=== PATIENT | female | born 1940 | race Two or more races ===

== ENCOUNTER 2023-04-15 15:19 | Inpatient (IN) | payer MEDICARE, OTHER ==
[2023-04-15 16:02] LABS: #Eosinphils 0.3 thou/uL (0.0-0.7); #Monocytes 0.8 thou/uL (0.11-0.59); #Neutrophils 5.5 thou/uL (1.40-6.50); %Basophils 0.4 % (0.0-1.0); %Eosinophils 3.5 % (0.0-10.0); %Lymphocytes 20.1 % (21.0-51.0); %Monocytes 9.6 % (0.0-10.0); %Neutrophils 66.2 % (42.0-75.0); Hematocrit 34.7 % (36.0-47.0); Mean Corpuscular HGB CONC 31.7 g/dL (32.0-36.0); Mean Corpuscular Hemoglobin 32.4 pg (27.0-31.0); Mean Corpuscular Volume 102.4 fl (78.0-98.0); Mean Platelet Volume 9.6 fL (7.4-10.4); Platelet Count 271 10x3/uL (130-400); RBC Distribution Width 18.2 % (11.5-14.5); Red Blood Cell (RBC) Count 3.39 mill/uL (4.20-5.40); White Blood Cell (WBC) Count 8.4 10x3/uL (4.8-10.8)
[2023-04-15] MEDS ORDERED: methylPREDNISolone Sod Succ/PF 125 MG/2 ML VIAL ONE (16:22)
[2023-04-15 16:25] LABS: ALT (SGPT) 34 U/L (8-55); AST (SGOT) 35 U/L (5-34); Albumin 3.9 g/dL (3.4-4.8); Alkaline Phosphatase 88 U/L (40-110); Anion Gap 15 mmol/L (10-20); BUN (Urea Nitrogen) 46 mg/dL (9.8-20.1); Bilirubin, Total 0.3 mg/dL (0.2-1.2); Calc. Creatinine Clearance 0 mL/min (70-130); Carbon Dioxide 29 mmol/L (23-31); Chloride 101 mmol/L (98-107); Estimated GFR 12; Globulin 1.6 g/dL (2.4-3.5); Glucose 96 mg/dL (83-110); Potassium 4.1 mmol/L (3.5-5.1); Protein, Total 5.5 g/dL (5.8-8.1); Sodium 141 mmol/L (136-145)
[2023-04-15 16:48] LABS: Magnesium 2.5 mg/dL (1.6-2.6)
[2023-04-15] MEDS ORDERED: Furosemide 40 MG/4 ML VIAL ONE (17:00)
[2023-04-15] MEDS ORDERED: Ipratropium/Albuterol 3 ML NEB ONE (17:00)
[2023-04-15] MEDS ORDERED: Nitroglycerin 2% Ointment 1 INCH/1 GM Packet ONE (17:00)
[2023-04-15] MEDS ORDERED: Aspirin Chewable 81 MG TAB ONE (17:02)
[2023-04-15] MEDS ORDERED: dilTIAZem 30 MG TAB PO PRN (18:34)
[2023-04-15] MEDS ORDERED: Senokot S 8.6-50 MG TAB PO PRN (18:45)
[2023-04-15] MEDS ORDERED: Acetaminophen 325 MG TAB PO PRN (18:45)
[2023-04-15] MEDS ORDERED: Ondansetron ODT 4 MG TAB PO PRN (18:45)
[2023-04-15] MEDS ORDERED: Ondansetron PF 4 MG/2 ML Vial IVP PRN (18:45)
[2023-04-15] MEDS ORDERED: Ipratropium/Albuterol 3 ML NEB NEB PRN (19:02)
[2023-04-15 19:40] LABS: Troponin I 0.894 ng/mL (< 0.028)
[2023-04-15] MEDS ORDERED: hydrALAZINE 25 MG TAB ONE (19:54)
[2023-04-15 20:01] LABS: Phosphorus 4.7 mg/dL (2.3-4.7)
[2023-04-15] MEDS ORDERED: LACTASE 9000 UNIT PO PRN (20:38)
[2023-04-15] MEDS: hydrALAZINE 25 MG TAB PO SCH (22:22)
[2023-04-15] MEDS: Apixaban 2.5 MG TAB PO SCH (22:30)
[2023-04-15] MEDS ORDERED: Polyethylene Glycol 3350 17 GM Packet PO PRN (23:13)
[2023-04-15] MEDS ORDERED: Mirtazapine 30 MG TAB PO SCH (23:30)
[2023-04-15] MEDS ORDERED: Atorvastatin Calcium 10 MG TAB PO SCH (23:30)
[2023-04-16] MEDS: Atorvastatin Calcium 10 MG TAB PO SCH ×2 (00:43→22:50)
[2023-04-16 04:34] LABS: #Monocytes 0.2 thou/uL (0.11-0.59); #Neutrophils 3.5 thou/uL (1.40-6.50); %Basophils 0.2 % (0.0-1.0); %Lymphocytes 21.7 % (21.0-51.0); %Monocytes 4.8 % (0.0-10.0); %Neutrophils 72.7 % (42.0-75.0); Hematocrit 35.6 % (36.0-47.0); Hemoglobin 11.3 g/dL (12.0-16.0); Mean Corpuscular HGB CONC 31.7 g/dL (32.0-36.0); Mean Corpuscular Hemoglobin 32.4 pg (27.0-31.0); Mean Platelet Volume 9.8 fL (7.4-10.4); Platelet Count 270 10x3/uL (130-400); RBC Distribution Width 17.8 % (11.5-14.5); Red Blood Cell (RBC) Count 3.49 mill/uL (4.20-5.40); White Blood Cell (WBC) Count 4.8 10x3/uL (4.8-10.8)
[2023-04-16 05:02] LABS: Anion Gap 17 mmol/L (10-20); BUN (Urea Nitrogen) 55 mg/dL (9.8-20.1); Calc. Creatinine Clearance 10 mL/min (70-130); Calcium 8.9 mg/dL (7.8-10.44); Carbon Dioxide 25 mmol/L (23-31); Chloride 101 mmol/L (98-107); Estimated GFR 11; Glucose 132 mg/dL (83-110); Potassium 4.4 mmol/L (3.5-5.1); Sodium 139 mmol/L (136-145)
[2023-04-16] MEDS: Levothyroxine Sodium 75 MCG TAB PO SCH (05:45)
[2023-04-16] MEDS: Ipratropium/Albuterol 3 ML NEB NEB SCH ×4 (07:45→23:04)
[2023-04-16] MEDS: Mometasone 100 MCG HFA INHALER (RT USE) INH SCH ×2 (07:46→19:05)
[2023-04-16 08:06] LABS: HBSAg Index 0.19 S/CO (0-0.99); Hep B Surf Ag Non-Reactive S/CO (NonReactive)
[2023-04-16] MEDS ORDERED: Non-Formulary Item 1 EACH (Ipratropium 200 PUFF Inh) IH SCH (09:00)
[2023-04-16] MEDS ORDERED: Non-Formulary Item 1 EACH (Fluticasone/Umeclidin/Vilanter [Trelegy Ellipta 100-62.5-25] 1 INH SCH (09:00)
[2023-04-16] MEDS ORDERED: FLU VACC QS2023(65UP)/MF59C/PF 60 MCG/0.5 ML SYRINGE IM ONE (09:00)
[2023-04-16 09:02] LABS: HBSAB Concentration Less than 8.00 mIU/mL; Hep B Surf AB Non-Reactive (NonReactive)
[2023-04-16] MEDS: Ezetimibe 10 MG TAB PO SCH (09:10)
[2023-04-16] MEDS: Sucralfate 1 GM TAB PO SCH ×3 (09:10→22:48)
[2023-04-16] MEDS: Apixaban 2.5 MG TAB PO SCH ×2 (09:10→22:50)
[2023-04-16] MEDS: hydrALAZINE 25 MG TAB PO SCH ×3 (09:11→22:48)
[2023-04-16] MEDS: Aspirin 81 mg Enteric Coated Tablet PO SCH (09:11)
[2023-04-16 13:45] LABS: Bilirubin Negative (Negative); Blood, Urine Negative (Negative); CAUTI Indications for Culture Alt mental st,lethar; Clarity Turbid (Clear); Glucose, Urine (Dipstick) Normal (Negative); Ketone, Urine Negative (Negative); Leukocyte 250 Leu/uL (Negative); Nitrite Negative (Negative); Protein, Urine (Dipstick) 300 mg/dL (Neg-Trace); RBC/HPF 0-3 HPF (0-3); Specific Gravity, Urine 1.014 (1.002-1.036); Squamous Epithelial 0-3 HPF (0-3); Urobilinogen Normal mg/dL (Less than 2)
[2023-04-16 13:46] LABS: Bacteria/HPF 1+ HPF (None Seen)
[2023-04-16 13:48] LABS: Urine Culture Reflex No No
[2023-04-16] MEDS: Metoclopramide HCl 10 MG TAB PO SCH ×2 (14:24→22:50)
[2023-04-16] MEDS ORDERED: cefTRIAXone\\ROCEPHIN 1 GM in Sodium Chloride 0.9% 100 ML IVPB SCH ×2 (17:45→22:45)
[2023-04-16] MEDS: Mirtazapine 30 MG Soltab PO SCH (22:50)
[2023-04-17 04:22] LABS: #Basophils 0.1 thou/uL (0.0-0.2); #Eosinphils 0.2 thou/uL (0.0-0.7); #Monocytes 0.7 thou/uL (0.11-0.59); #Neutrophils 5.4 thou/uL (1.40-6.50); %Basophils 0.6 % (0.0-1.0); %Eosinophils 2.1 % (0.0-10.0); %Lymphocytes 18.5 % (21.0-51.0); %Monocytes 9.2 % (0.0-10.0); %Neutrophils 69.2 % (42.0-75.0); Hematocrit 34.1 % (36.0-47.0); Hemoglobin 10.7 g/dL (12.0-16.0); Mean Corpuscular HGB CONC 31.4 g/dL (32.0-36.0); Mean Corpuscular Hemoglobin 31.9 pg (27.0-31.0); Mean Corpuscular Volume 101.8 fl (78.0-98.0); Mean Platelet Volume 9.4 fL (7.4-10.4); Platelet Count 252 10x3/uL (130-400); RBC Distribution Width 17.8 % (11.5-14.5); Red Blood Cell (RBC) Count 3.35 mill/uL (4.20-5.40); White Blood Cell (WBC) Count 7.7 10x3/uL (4.8-10.8)
[2023-04-17 04:54] LABS: Anion Gap 12 mmol/L (10-20); BUN (Urea Nitrogen) 25 mg/dL (9.8-20.1); Calc. Creatinine Clearance 15 mL/min (70-130); Calcium 8.3 mg/dL (7.8-10.44); Carbon Dioxide 27 mmol/L (23-31); Chloride 101 mmol/L (98-107); Estimated GFR 19; Glucose 96 mg/dL (83-110); Potassium 3.3 mmol/L (3.5-5.1); Sodium 137 mmol/L (136-145)
[2023-04-17] MEDS: Levothyroxine Sodium 75 MCG TAB PO SCH (06:32)
[2023-04-17] MEDS: Ipratropium/Albuterol 3 ML NEB NEB SCH ×3 (06:57→19:43)
[2023-04-17] MEDS: Mometasone 100 MCG HFA INHALER (RT USE) INH SCH ×2 (07:01→19:44)
[2023-04-17] MEDS ORDERED: Potassium Chloride 20 MEQ TAB PO SCH (07:15)
[2023-04-17] MEDS: Sucralfate 1 GM TAB PO SCH ×3 (07:58→20:10)
[2023-04-17] MEDS: Ezetimibe 10 MG TAB PO SCH (07:59)
[2023-04-17] MEDS: cefTRIAXone\\ROCEPHIN 1 GM in Sodium Chloride 0.9% 100 ML IVPB SCH (07:59)
[2023-04-17] MEDS: Metoclopramide HCl 10 MG TAB PO SCH ×3 (07:59→20:10)
[2023-04-17] MEDS: hydrALAZINE 25 MG TAB PO SCH ×3 (07:59→20:11)
[2023-04-17] MEDS: Aspirin 81 mg Enteric Coated Tablet PO SCH (07:59)
[2023-04-17] MEDS: Apixaban 2.5 MG TAB PO SCH ×2 (07:59→20:10)
[2023-04-17] MEDS: Atorvastatin Calcium 10 MG TAB PO SCH (20:10)
[2023-04-17] MEDS: Mirtazapine 30 MG Soltab PO SCH (20:10)
[2023-04-18] MEDS: Ipratropium/Albuterol 3 ML NEB NEB SCH ×4 (00:39→18:25)
[2023-04-18 04:39] LABS: #Eosinphils 0.2 thou/uL (0.0-0.7); #Monocytes 0.9 thou/uL (0.11-0.59); #Neutrophils 4.8 thou/uL (1.40-6.50); %Basophils 0.4 % (0.0-1.0); %Eosinophils 2.4 % (0.0-10.0); %Lymphocytes 21.6 % (21.0-51.0); %Monocytes 11.3 % (0.0-10.0); %Neutrophils 64.2 % (42.0-75.0); Hemoglobin 10.3 g/dL (12.0-16.0); Mean Corpuscular HGB CONC 31.2 g/dL (32.0-36.0); Mean Corpuscular Hemoglobin 32.3 pg (27.0-31.0); Mean Corpuscular Volume 103.4 fl (78.0-98.0); Mean Platelet Volume 9.8 fL (7.4-10.4); Platelet Count 237 10x3/uL (130-400); RBC Distribution Width 17.9 % (11.5-14.5); Red Blood Cell (RBC) Count 3.19 mill/uL (4.20-5.40); White Blood Cell (WBC) Count 7.5 10x3/uL (4.8-10.8)
[2023-04-18 05:23] LABS: Anion Gap 15 mmol/L (10-20); BUN (Urea Nitrogen) 46 mg/dL (9.8-20.1); Calc. Creatinine Clearance 10 mL/min (70-130); Calcium 7.8 mg/dL (7.8-10.44); Carbon Dioxide 24 mmol/L (23-31); Chloride 101 mmol/L (98-107); Estimated GFR 11; Glucose 108 mg/dL (83-110); Potassium 4.4 mmol/L (3.5-5.1); Sodium 136 mmol/L (136-145)
[2023-04-18] MEDS: Levothyroxine Sodium 75 MCG TAB PO SCH (05:48)
[2023-04-18] MEDS: Mometasone 100 MCG HFA INHALER (RT USE) INH SCH ×2 (07:45→18:26)
[2023-04-18] MEDS: cefTRIAXone\\ROCEPHIN 1 GM in Sodium Chloride 0.9% 100 ML IVPB SCH (08:05)
[2023-04-18] MEDS: Sucralfate 1 GM TAB PO SCH ×3 (08:05→21:07)
[2023-04-18] MEDS: Metoclopramide HCl 10 MG TAB PO SCH ×3 (08:05→21:07)
[2023-04-18] MEDS: Apixaban 2.5 MG TAB PO SCH ×2 (08:06→21:07)
[2023-04-18] MEDS: Ezetimibe 10 MG TAB PO SCH (08:06)
[2023-04-18] MEDS: Aspirin 81 mg Enteric Coated Tablet PO SCH (08:06)
[2023-04-18] MEDS: hydrALAZINE 25 MG TAB PO SCH ×3 (08:06→21:17)
[2023-04-18] MEDS ORDERED: Senokot S 8.6-50 MG TAB PO PRN (14:00)
[2023-04-18] MEDS: Mirtazapine 30 MG Soltab PO SCH (21:07)
[2023-04-19] MEDS: Ipratropium/Albuterol 3 ML NEB NEB SCH ×4 (00:14→19:10)
[2023-04-19 04:30] LABS: #Eosinphils 0.2 thou/uL (0.0-0.7); #Monocytes 0.8 thou/uL (0.11-0.59); #Neutrophils 3.8 thou/uL (1.40-6.50); %Basophils 0.3 % (0.0-1.0); %Eosinophils 2.6 % (0.0-10.0); %Lymphocytes 25.1 % (21.0-51.0); %Monocytes 12.7 % (0.0-10.0); Hematocrit 32.8 % (36.0-47.0); Hemoglobin 10.2 g/dL (12.0-16.0); Mean Corpuscular HGB CONC 31.1 g/dL (32.0-36.0); Mean Corpuscular Hemoglobin 31.6 pg (27.0-31.0); Mean Corpuscular Volume 101.5 fl (78.0-98.0); Mean Platelet Volume 9.8 fL (7.4-10.4); Platelet Count 231 10x3/uL (130-400); RBC Distribution Width 17.6 % (11.5-14.5); Red Blood Cell (RBC) Count 3.23 mill/uL (4.20-5.40); White Blood Cell (WBC) Count 6.5 10x3/uL (4.8-10.8)
[2023-04-19 04:51] LABS: Anion Gap 16 mmol/L (10-20); BUN (Urea Nitrogen) 65 mg/dL (9.8-20.1); Calc. Creatinine Clearance 8 mL/min (70-130); Calcium 8.2 mg/dL (7.8-10.44); Carbon Dioxide 25 mmol/L (23-31); Chloride 101 mmol/L (98-107); Estimated GFR 9; Glucose 112 mg/dL (83-110); Potassium 4.7 mmol/L (3.5-5.1); Sodium 137 mmol/L (136-145)
[2023-04-19] MEDS: Levothyroxine Sodium 75 MCG TAB PO SCH (06:03)
[2023-04-19] MEDS: Mometasone 100 MCG HFA INHALER (RT USE) INH SCH ×2 (07:17→19:11)
[2023-04-19] MEDS ORDERED: Epoetin (ESRD) 10,000 UNITS/ML VIAL SC SCH (09:00)
[2023-04-19] MEDS: Sucralfate 1 GM TAB PO SCH ×3 (12:05→22:34)
[2023-04-19] MEDS: Aspirin 81 mg Enteric Coated Tablet PO SCH (12:05)
[2023-04-19] MEDS: Ezetimibe 10 MG TAB PO SCH ×2 (12:05→22:35)
[2023-04-19] MEDS: cefTRIAXone\\ROCEPHIN 1 GM in Sodium Chloride 0.9% 100 ML IVPB SCH (12:05)
[2023-04-19] MEDS: hydrALAZINE 25 MG TAB PO SCH ×3 (12:06→22:34)
[2023-04-19] MEDS: Apixaban 2.5 MG TAB PO SCH ×2 (12:06→22:34)
[2023-04-19] MEDS: Metoclopramide HCl 10 MG TAB PO SCH ×3 (12:06→22:33)
[2023-04-19] MEDS ORDERED: Heparin 10,000 UNITS/ 10 ML VIAL ONE (14:56)
[2023-04-19] MEDS: Mirtazapine 30 MG Soltab PO SCH (22:34)
[2023-04-19] MEDS: Atorvastatin Calcium 10 MG TAB PO SCH (22:34)
[2023-04-20] MEDS: Ipratropium/Albuterol 3 ML NEB NEB SCH ×4 (00:25→19:25)
[2023-04-20 04:25] LABS: #Eosinphils 0.2 thou/uL (0.0-0.7); #Neutrophils 5.6 thou/uL (1.40-6.50); %Basophils 0.4 % (0.0-1.0); %Eosinophils 2.2 % (0.0-10.0); %Lymphocytes 17.9 % (21.0-51.0); %Monocytes 12.2 % (0.0-10.0); %Neutrophils 66.9 % (42.0-75.0); Hematocrit 33.8 % (36.0-47.0); Hemoglobin 10.7 g/dL (12.0-16.0); Mean Corpuscular HGB CONC 31.7 g/dL (32.0-36.0); Mean Corpuscular Hemoglobin 32.4 pg (27.0-31.0); Mean Corpuscular Volume 102.4 fl (78.0-98.0); Mean Platelet Volume 10.4 fL (7.4-10.4); Platelet Count 222 10x3/uL (130-400); RBC Distribution Width 17.4 % (11.5-14.5); White Blood Cell (WBC) Count 8.3 10x3/uL (4.8-10.8)
[2023-04-20 04:53] LABS: Anion Gap 12 mmol/L (10-20); BUN (Urea Nitrogen) 40 mg/dL (9.8-20.1); Calc. Creatinine Clearance 11 mL/min (70-130); Calcium 8.4 mg/dL (7.8-10.44); Carbon Dioxide 27 mmol/L (23-31); Chloride 102 mmol/L (98-107); Estimated GFR 12; Glucose 101 mg/dL (83-110); Potassium 4.1 mmol/L (3.5-5.1); Sodium 137 mmol/L (136-145)
[2023-04-20] MEDS: Levothyroxine Sodium 75 MCG TAB PO SCH (06:59)
[2023-04-20] MEDS: Mometasone 100 MCG HFA INHALER (RT USE) INH SCH ×2 (07:28→19:25)
[2023-04-20] MEDS: cefTRIAXone\\ROCEPHIN 1 GM in Sodium Chloride 0.9% 100 ML IVPB SCH (09:38)
[2023-04-20] MEDS: hydrALAZINE 25 MG TAB PO SCH ×3 (09:38→22:25)
[2023-04-20] MEDS: Sucralfate 1 GM TAB PO SCH ×3 (09:39→22:26)
[2023-04-20] MEDS: Apixaban 2.5 MG TAB PO SCH ×2 (09:39→22:26)
[2023-04-20] MEDS: Aspirin 81 mg Enteric Coated Tablet PO SCH (09:39)
[2023-04-20] MEDS: Metoclopramide HCl 10 MG TAB PO SCH ×3 (09:39→22:25)
[2023-04-20] MEDS ORDERED: oxyCODONE 5 MG TAB PO PRN (16:25)
[2023-04-20] MEDS: Mirtazapine 30 MG Soltab PO SCH (22:26)
[2023-04-20] MEDS: Ezetimibe 10 MG TAB PO SCH (22:26)
[2023-04-20] MEDS: Atorvastatin Calcium 10 MG TAB PO SCH (22:26)
[2023-04-21] MEDS: Ipratropium/Albuterol 3 ML NEB NEB SCH ×3 (00:05→13:37)
[2023-04-21 03:32] VITALS: BP 137/63; TEMP 98.8
[2023-04-21 04:07] LABS: #Eosinphils 0.2 thou/uL (0.0-0.7); #Monocytes 1.1 thou/uL (0.11-0.59); #Neutrophils 6.3 thou/uL (1.40-6.50); %Basophils 0.3 % (0.0-1.0); %Eosinophils 1.7 % (0.0-10.0); %Lymphocytes 16.2 % (21.0-51.0); %Monocytes 12.1 % (0.0-10.0); %Neutrophils 69.4 % (42.0-75.0); Hematocrit 33.3 % (36.0-47.0); Hemoglobin 10.5 g/dL (12.0-16.0); Mean Corpuscular HGB CONC 31.5 g/dL (32.0-36.0); Mean Corpuscular Hemoglobin 32.5 pg (27.0-31.0); Mean Corpuscular Volume 103.1 fl (78.0-98.0); Mean Platelet Volume 10.4 fL (7.4-10.4); Platelet Count 245 10x3/uL (130-400); RBC Distribution Width 17.2 % (11.5-14.5); Red Blood Cell (RBC) Count 3.23 mill/uL (4.20-5.40); White Blood Cell (WBC) Count 9.2 10x3/uL (4.8-10.8)
[2023-04-21 04:29] LABS: Anion Gap 15 mmol/L (10-20); BUN (Urea Nitrogen) 59 mg/dL (9.8-20.1); Calc. Creatinine Clearance 9 mL/min (70-130); Calcium 8.7 mg/dL (7.8-10.44); Carbon Dioxide 24 mmol/L (23-31); Chloride 102 mmol/L (98-107); Estimated GFR 10; Glucose 106 mg/dL (83-110); Potassium 4.2 mmol/L (3.5-5.1); Sodium 137 mmol/L (136-145)
[2023-04-21] MEDS: Levothyroxine Sodium 75 MCG TAB PO SCH (06:23)
[2023-04-21] MEDS: Mometasone 100 MCG HFA INHALER (RT USE) INH SCH (08:08)
[2023-04-21] MEDS: Metoclopramide HCl 10 MG TAB PO SCH ×3 (10:35→14:50)
[2023-04-21] MEDS: Sucralfate 1 GM TAB PO SCH ×3 (10:35→14:51)
[2023-04-21] MEDS ORDERED: Heparin 10,000 UNITS/ 10 ML VIAL ONE (12:47)
[2023-04-21] MEDS: cefTRIAXone\\ROCEPHIN 1 GM in Sodium Chloride 0.9% 100 ML IVPB SCH (13:08)
[2023-04-21] MEDS: Aspirin 81 mg Enteric Coated Tablet PO SCH ×2 (13:36→14:12)
[2023-04-21] MEDS: hydrALAZINE 25 MG TAB PO SCH ×3 (13:36→14:50)
[2023-04-21] MEDS: Apixaban 2.5 MG TAB PO SCH ×2 (13:36→14:12)
[2023-04-21] MEDS: (Linaclotide [Linzess] 145 MCG Capsule) PO SCH (15:03)
== END 2023-04-21 15:01 | DRG 280 ==
LOC: ERS 15:19 → 2NO 17:25 → OBSVTOIN 04-16 11:15
PROVIDERS: ADMIT Family Medicine; ATTEND Internal Medicine
PROC: 5A09357 Assistance with Respiratory Ventilation, Less than 24 Consecutive Hours, Continuous Positive Airway Pressure (ICD-10-PCS; principal; 2023-04-16)
PROC: 5A1D70Z Performance of Urinary Filtration, Intermittent, Less than 6 Hours Per Day (ICD-10-PCS; 2023-04-21)
DX: I48.0 Paroxysmal atrial fibrillation (principal); N18.6 End stage renal disease; I21.A1 Myocardial infarction type 2; I13.2 Hypertensive heart and chronic kidney disease with heart failure and with stage 5 chronic kidney disease, or end stage renal disease; N39.0 Urinary tract infection, site not specified; I50.9 Heart failure, unspecified; J44.9 Chronic obstructive pulmonary disease, unspecified; E03.9 Hypothyroidism, unspecified; E78.5 Hyperlipidemia, unspecified; F39 Unspecified mood [affective] disorder; K58.9 Irritable bowel syndrome, unspecified; D63.1 Anemia in chronic kidney disease; K21.9 Gastro-esophageal reflux disease without esophagitis; E78.00 Pure hypercholesterolemia, unspecified; F41.9 Anxiety disorder, unspecified; E87.6 Hypokalemia; I73.9 Peripheral vascular disease, unspecified; I34.0 Nonrheumatic mitral (valve) insufficiency; I47.19 Other supraventricular tachycardia; F32.A Depression, unspecified; Z99.81 Dependence on supplemental oxygen; Z98.890 Other specified postprocedural states; Z95.0 Presence of cardiac pacemaker; Z99.2 Dependence on renal dialysis; Z79.01 Long term (current) use of anticoagulants; Z87.891 Personal history of nicotine dependence; Z90.49 Acquired absence of other specified parts of digestive tract; Z88.1 Allergy status to other antibiotic agents; Z88.8 Allergy status to other drugs, medicaments and biological substances; Z88.2 Allergy status to sulfonamides; Z79.899 Other long term (current) drug therapy
CPT/HCPCS: 36415; 36416; 71045; 80048; 80053; 81001; 83735; 83880; 84100; 84484; 85025; 86706; 87340; 90935; 93005; 93306; 94640; 96374; 96375; G0257; G0378; J0696; J1644; J1940; J2930; J3490; J7620; Q4081